=== PATIENT | female | born 1990 | race Caucasian/White ===

== ENCOUNTER → 2018-06-14 | Outpatient (CLI) | payer BC ==
[2018-06-14 11:13] LABS: HCT 38.7 % (34.0-46.0); HGB 12.6 gm/dL (11.4-16.0); MCH 29.4 pg (25.0-35.0); MCHC 32.5 g/dL (31.0-37.0); MCV 90.5 fL (80.0-100.0); Mean Platelet Volume 7.1; Platelet Count 276 k/uL (150-450); RBC 4.27 m/uL (3.80-5.40); RDW 13.1 % (11.5-15.5); WBC 11.2 k/uL (3.8-10.6)
== END | disposition home or self-care (01) ==
LOC: LABWHC1 09:13
PROVIDERS: ATTEND Obstetrics & Gynecology
DX: Z34.02 Encounter for supervision of normal first pregnancy, second trimester (principal)
CPT/HCPCS: 36415; 82950; 84439; 84443; 85027

== ENCOUNTER 2018-09-06 05:55 | Inpatient (IN) | payer BC ==
[2018-09-06] MEDS ORDERED: METHYLERGONOVINE 0.2 MG/ML 1 ML AMP IM PRN (06:14)
[2018-09-06] MEDS ORDERED: LIDOCAINE 0.5% (PF) 5 MG/ML (50 ML SDV) SQ PRN (06:14)
[2018-09-06] MEDS ORDERED: CARBOPROST TROMETHAMINE 250 MCG/ML 1 ML AMP IM PRN (06:14)
[2018-09-06] MEDS ORDERED: TERBUTALINE 1 MG/ML VIAL SQ PRN (06:14)
[2018-09-06] MEDS ORDERED: OXYTOCIN 10 UNIT/ML 1 ML VIAL IM PRN (06:14)
[2018-09-06] MEDS ORDERED: AMPICILLIN 2,000 MG in SODIUM CHLORIDE 0.9% 100 ML IVPB STA (06:14)
[2018-09-06] MEDS ORDERED: OXYTOCIN 30 UNITS/500 ML NS 30 UNIT in SALINE 1 500ML.BAG IV SCH (06:15)
[2018-09-06 06:32] VITALS: BMI 48.3
[2018-09-06] MEDS: LACTATED RINGERS 1,000 ML IV SCH ×3 (06:33→21:49)
[2018-09-06 06:43] LABS: Basophils % (A) 0 %; Eosinophils # (A) 0.2 k/uL (0-0.7); Eosinophils % (A) 2 %; HCT 41.5 % (34.0-46.0); HGB 13.6 gm/dL (11.4-16.0); Lymphocytes # (A) 2.2 k/uL (1.0-4.8); Lymphocytes % (A) 19 %; MCH 28.4 pg (25.0-35.0); MCHC 32.8 g/dL (31.0-37.0); MCV 86.6 fL (80.0-100.0); Mean Platelet Volume 7.7; Monocytes # (A) 0.5 k/uL (0-1.0); Monocytes % (A) 4 %; Neutrophils # (A) 8.7 k/uL (1.3-7.7); Neutrophils % (A) 73 %; Platelet Count 254 k/uL (150-450); RBC 4.79 m/uL (3.80-5.40); RDW 13.4 % (11.5-15.5); WBC 11.8 k/uL (3.8-10.6)
[2018-09-06] MEDS: AMPICILLIN 1,000 MG in SODIUM CHLORIDE 0.9% 50 ML IVPB SCH ×4 (10:38→22:16)
[2018-09-06] MEDS ORDERED: BUTORPHANOL 1 MG/ML 1 ML VIAL IV PRN (12:28)
[2018-09-06] MEDS ORDERED: CITRIC ACID-SODIUM CITRATE 15 ML CUP PO ONE (22:42)
[2018-09-06] MEDS ORDERED: DEXAMETHASONE SOD PHOS (MDV) 100 MG/10 ML VIAL ONE (23:06)
[2018-09-06] MEDS ORDERED: KETOROLAC 30 MG/ML 1 ML VIAL ONE (23:06)
[2018-09-06] MEDS ORDERED: OXYTOCIN 10 UNIT/ML 1 ML VIAL ONE (23:06)
[2018-09-06] MEDS ORDERED: fentaNYL (PF) 50 MCG/ML 2 ML AMP ONE (23:06)
[2018-09-06] MEDS ORDERED: MORPHINE SULFATE (PF) 0.3 MG/0.3 ML SYR ONE (23:06)
[2018-09-06] MEDS ORDERED: ONDANSETRON 4 MG/2 ML VIAL ONE (23:06)
[2018-09-06] MEDS ORDERED: NALBUPHINE 10 MG/ML (1 ML AMP) ONE (23:06)
[2018-09-06] MEDS ORDERED: LACTATED RINGERS 1,000 ML IV SCH (23:45)
[2018-09-06] MEDS ORDERED: OXYTOCIN 20 UNITS/1000 ML NS 1,000 ML IV SCH (23:45)
--- NOTE | 2018-09-06 23:52 | P.HPOB ---
History of Present Illness H&P Date: 09/06/18 Chief Complaint: Induction of labor, pre-eclampsia 28 year old presents at 37 weeks 1 day for induction of labor due to pre- eclampsia. She has had elevated BPs in office and triage up to 150/100. She has had normal labs except a P/C ratio of 0.4. heart tones are 130's moderate variability and accelerations, category 1. HEr cervix is 1/70/-3. She is not charly. Review of Systems All systems: negative Constitutional: Denies chills, Denies fever Eyes: denies blurred vision, denies pain, denies tunnel vision/blind spots Ears, nose, mouth and throat: Denies headache, Denies sore throat Cardiovascular: Denies chest pain, Denies shortness of breath Respiratory: Denies cough Gastrointestinal: Denies abdominal pain, Denies diarrhea, Denies nausea, Denies vomiting Genitourinary: Denies dysuria, Denies hematuria Musculoskeletal: Denies myalgias Integumentary: Denies pruritus, Denies rash Neurological: Denies numbness, Denies weakness Psychiatric: Denies anxiety, Denies depression Endocrine: Denies fatigue, Denies weight change Past Medical History Past Medical History: Thyroid Disorder Additional Past Medical History / Comment(s): OB history: This is an IVF and 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 A+, abs neg, Rub Imm, RPR NR, Hep B Neg, GBS+. OVer the last few weeks her BPs have started to rise and her labs have been done weekly for the last 3 weeks. Labs were normal except a P/C ratio of 0.4. This is diagnostic of pre-eclampsia though she denies any symptoms. She was followed with twice weekly NSTs, weekly BPPs and weekly labs. History of Any Multi-Drug Resistant Organisms: None Reported Past Anesthesia/Blood Transfusion Reactions: No Reported Reaction Past Psychological History: No Psychological Hx Reported Smoking Status: Never smoker Past Alcohol Use History: None Reported Past Drug Use History: None Reported - Past Family History Father Family Medical History: Cancer Medications and Allergies Home Medications Medication Instructions Recorded Confirmed Type Cetirizine HCl [Zyrtec] 1 tab PO DAILY 08/15/18 09/06/18 History Cholecalciferol [Vitamin D3] 1 tab PO DAILY 08/15/18 08/15/18 History Levothyroxine Sodium [Synthroid] 1 tab PO DAILY 08/15/18 09/06/18 History Montelukast [Singulair] 10 mg PO DAILY 08/15/18 09/06/18 History [place]-3 Fatty Acids [[place]-3] 1 tab PO DAILY 08/15/18 09/06/18 History Pnv,Calcium 72/Iron/Folic Acid 1 each PO DAILY 08/15/18 09/06/18 History [ Plus Tablet] diphenhydrAMINE HCL [Benadryl] 25 mg PO HS 09/06/18 09/06/18 History Allergies Allergy/AdvReac Type Severity Reaction Status Date / Time Sulfa (Sulfonamide Allergy Rash/Hives Verified 09/06/18 06:11 Antibiotics) Exam Osteopathic Statement: *. No significant issues noted on an osteopathic structural exam other than those noted in the History and Physical/Consult. Vital Signs Temp Pulse Resp BP Pulse Ox 09/06/18 06:10 98.4 F 93 16 182/84 96 Intake and Output 09/06/18 09/06/18 09/07/18 14:59 22:59 06:59 Intake Total 1000 Balance 1000 Intake: IV 1000 Lactated Ringers 1,000 ml 1000 @ 125 mls/hr IV .Q8H RAMON Rx#:[id number] Other: # Voids 2 Heart: Regular rate and rhythm Lungs: Clear to auscultation bilaterally Abdomen: Soft, nontender Extremities: Negative Homans sign Results Result Diagrams: 09/06/18 06:18 Abnormal Lab Results - Last 24 Hours (Table) 09/06/18 Range/Units 06:18 WBC 11.8 H (3.8-10.6) k/uL Neutrophils # 8.7 H (1.3-7.7) k/uL Assessment and Plan (1) Pre-eclampsia Current Visit: Yes Status: Acute Code(s): O14.90 - UNSPECIFIED PRE- ECLAMPSIA, UNSPECIFIED TRIMESTER SNOMED Code(s): 756558041 (2) 37 weeks gestation of Current Visit: Yes Status: Acute Code(s): Z3A.37 - 37 WEEKS GESTATION OF SNOMED Code(s): 55499117 (3) Bicornuate uterus Current Visit: Yes Status: Acute Code(s): Q51.3 - BICORNATE UTERUS SNOMED Code(s): 83380722 Plan: 1. Induction of labor with amniotomy and Pitocin 2. Anticipate normal vaginal delivery
[2018-09-06] MEDS ORDERED: ACETAMINOPHEN TAB 325 MG TAB PO PRN (23:57)
[2018-09-06] MEDS ORDERED: LANOLIN CREAM 5 GM TUBE TOPICAL PRN (23:57)
[2018-09-06] MEDS ORDERED: diphenhydrAMINE 50 MG CAP PO PRN (23:57)
[2018-09-06] MEDS ORDERED: METOCLOPRAMIDE 5 MG/ML 2 ML VIAL IVP PRN (23:57)
[2018-09-06] MEDS ORDERED: ZOLPIDEM 5 MG TAB PO PRN (23:57)
[2018-09-06] MEDS ORDERED: ONDANSETRON 4 MG/2 ML VIAL IVP PRN (23:57)
[2018-09-06] MEDS ORDERED: diphenhydrAMINE 25 MG CAP PO PRN (23:57)
[2018-09-06] MEDS ORDERED: KETOROLAC 30 MG/ML 1 ML VIAL IVP PRN (23:57)
[2018-09-06] MEDS ORDERED: diphenhydrAMINE 50 MG/ML 1 ML VIAL IVP PRN ×2 (23:57)
[2018-09-06] MEDS ORDERED: NALOXONE 0.4 MG/ML 1 ML VIAL IV PRN (23:57)
--- NOTE | 2018-09-06 23:57 | P.OP ---
Date of Procedure: 09/06/18 Preoperative Diagnosis: 1. at 37 weeks and 1 day 2. Preeclampsia 3. Bicornuate uterus 4. Failure to progress Postoperative Diagnosis: 1. at 37 weeks and 1 day 2. Preeclampsia 3. Bicornuate uterus 4. Failure to progress Procedure(s) Performed: Primary low transverse Anesthesia: spinal Surgeon: Ramandeep Shell Body Welder #1: Faith Perdue Estimated Blood Loss (ml): 350 IV fluids (ml): 600 Urine output (ml): 200 Pathology: other (Placenta) Condition: stable Disposition: floor Indications for Procedure: 28-year-old presented at 37 weeks and 1 day for induction of labor due to preeclampsia. Please see history and physical for full details on this diagnosis. Her cervix was 1 cm dilated, 70% effaced, and -3 station. She is not charly. heart tones 130 with moderate variability and accelerations, category 1 tracing. Amniotomy was performed at 8:20 AM and clear fluid noted. Pitocin had been started. She was also receiving ampicillin for GBS positive status. When she was charly in a good labor pattern her cervix did dilate to 3 cm, 90% effaced, and -2 station. She did not pass this dilation despite adequate contractions for several hours. heart tones remained category 1 tracing. Informed consent was obtained and section was called. Operative Findings: Viable female, Apgars 9, 9, weight 6 lbs. 13 oz. Normal uterus, tubes, ovaries. Description of Procedure: Patient was taken to the operating room where spinal anesthesia was found be adequate. She was prepped and draped in normal sterile fashion in dorsal supine position with a leftward tilt. Pfannenstiel skin incision was made the scalpel and carried through to the underlying layer of fascia with the scalpel. Fascia was incised in midline and carried bilaterally with the Gleason scissors. The superior aspect of the fascial incision was grasped with [place] clamps elevated and the underlying rectus muscles dissected off with the Gleason's. Attention was then turned to inferior aspect of same incision which in a similar fashion was grasped tented up and the underlying rectus muscles dissected off with the Bella banks's. The rectus muscles were the midline and the peritoneum was identified tented up and entered sharply with the scalpel. The incision was extended superiorly and inferiorly with good visualization of the bladder. The bladder blade was inserted and the vesicouterine peritoneum was incised the [place]zen[place]ums then carried bilaterally and bladder flap created digitally. A low transverse incision was then made on the uterus with the scalpel. This was carried bilaterally and digital manner. 's head delivered atraumatically, nose and mouth bulb suctioned, cord clamped and cut, handed off to waiting nurses. Apgars 9,9, weight 6 lbs. 13 oz. Placenta delivered manually, intact with three-vessel cord. The uterus is exteriorized and cleared of all clots and debris. The uterine incision was closed with 0 Vicryl in a running locked fashion. Second layer of the same sutures used in imbricating fashion to obtain excellent hemostasis. Both ovaries and tubes appeared normal. The uterus was placed back into the abdomen. The peritoneum was reapproximated using 2-0 Vicryl in a running fashion. The muscles were reapproximated using 2- 0 Vicryl in interrupted fashion. The fascia was reapproximated using 0 Vicryl in a running fashion. The subcutaneous tissues closed with 3-0 Vicryl running fashion. The skin was closed major. Patient tolerated the procedure well, sponge and instrument counts were correct times 2 and she was taken to the recovery room in stable condition.
[2018-09-07 05:52] LABS: Basophils % (A) 0 %; Eosinophils # (A) 0.2 k/uL (0-0.7); Eosinophils % (A) 1 %; HCT 39.2 % (34.0-46.0); HGB 12.8 gm/dL (11.4-16.0); Lymphocytes # (A) 0.9 k/uL (1.0-4.8); Lymphocytes % (A) 5 %; MCH 28.2 pg (25.0-35.0); MCHC 32.6 g/dL (31.0-37.0); MCV 86.5 fL (80.0-100.0); Mean Platelet Volume 7.9; Monocytes # (A) 0.3 k/uL (0-1.0); Monocytes % (A) 2 %; Neutrophils % (A) 92 %; Platelet Count 242 k/uL (150-450); RBC 4.53 m/uL (3.80-5.40); RDW 13.3 % (11.5-15.5); WBC 17.4 k/uL (3.8-10.6)
[2018-09-07] MEDS: SENNOSIDES-DOCUSATE SODIUM 1 EACH TAB PO SCH ×2 (09:55→20:00)
--- NOTE | 2018-09-07 12:54 | P.PNOBGPC ---
Subjective - Subjective Principal diagnosis: S/P 1*LTCS POD #1 Interval history: Patient seen and examined. She is seen actively vomiting at bedside. She felt much better once she did. She is been up to the bedside once, it has only been about 12 hours since delivery. Her pain is controlled Patient reports: Reports pain well controlled, Reports ambulating normally, Reports nauseated [place]: doing well Objective - Vital Signs Latest vital signs: Vital Signs Temp Pulse Resp BP Pulse Ox 09/07/18 08:00 98.5 F 76 18 114/62 95 09/07/18 03:55 98.0 F 77 16 131/74 98 09/07/18 01:50 98.3 F 77 16 146/65 09/07/18 01:20 98.4 F 74 16 123/62 96 09/07/18 00:50 80 16 110/63 94 L 09/07/18 00:35 77 16 120/68 95 09/07/18 00:20 97.8 F 85 16 117/64 94 L 09/07/18 00:05 97.5 F L 84 16 101/66 95 09/06/18 23:50 97.4 F L 81 16 124/65 94 L Intake and Output 09/06/18 09/07/18 09/07/18 22:59 06:59 14:59 Intake Total 10 Output Total 100 600 Balance -90 -600 Intake: Oral 10 Output: Urine 100 400 Uretheral ([place]) 400 Emesis 200 Other: # Voids 2 - Exam Lungs: bilateral: normal Chest: Normal S1, Normal S2 Extremities: Present: normal Abdomen: Present: normal appearance, soft. Absent: distention, tenderness Incision: Present: normal, dry, intact Uterus: Present: normal, firm - Labs Labs: Abnormal Lab Results - Last 24 Hours (Table) 09/07/18 Range/Units 05:35 WBC 17.4 H (3.8-10.6) k/uL Neutrophils # 16.0 H (1.3-7.7) k/uL Lymphocytes # 0.9 L (1.0-4.8) k/uL Assessment and Plan (1) Pre-eclampsia Current Visit: Yes Status: Acute Code(s): O14.90 - UNSPECIFIED PRE- ECLAMPSIA, UNSPECIFIED TRIMESTER SNOMED Code(s): 218870065 (2) 37 weeks gestation of Current Visit: Yes Status: Resolved Code(s): Z3A.37 - 37 WEEKS GESTATION OF SNOMED Code(s): 43671551 (3) Bicornuate uterus Current Visit: Yes Status: Acute Code(s): Q51.3 - BICORNATE UTERUS SNOMED Code(s): 79078128 (4) Status post primary low transverse section Current Visit: Yes Status: Acute Code(s): Z98.891 - HISTORY OF UTERINE SCAR FROM PREVIOUS SURGERY SNOMED Code(s): 871545517 Plan: 1. Diet as tolerated 2. Increase ambulation
[2018-09-07] MEDS: HYDROcodone/APAP 7.5-325MG 1 EACH TAB PO PRN (19:45)
[2018-09-07] MEDS: SIMETHICONE 80 MG CHEWABLE PO PRN (20:00)
[2018-09-07] MEDS: IBUPROFEN 600 MG TAB PO PRN (23:27)
[2018-09-08] MEDS: HYDROcodone/APAP 7.5-325MG 1 EACH TAB PO PRN ×2 (05:14→15:12)
[2018-09-08 08:52] VITALS: BP 126/72; PULSE 98; RESP 18; TEMP 98.6
--- NOTE | 2018-09-08 09:50 | P.DS ---
Providers Date of admission: 09/06/18 05:55 Expected date of discharge: 09/08/18 Attending physician: Ramandeep Shell Primary care physician: Stated None - Discharge Diagnosis(es) (1) Pre-eclampsia Current Visit: Yes Status: Acute (2) 37 weeks gestation of Current Visit: Yes Status: Resolved (3) Bicornuate uterus Current Visit: Yes Status: Acute (4) Status post primary low transverse section Current Visit: Yes Status: Acute Hospital Course: Pt presented for induction of labor due to pre-eclampsia. She underwent a primary low transverse for failure to progress. Her post op course was uncomplicated. She will be discharged home PPD #2 in stable condition to follow up with me in 1 week. Plan - Discharge Summary New Discharge Prescriptions: New Ibuprofen [Motrin] 600 mg PO Q6HR PRN #30 tab PRN Reason: Mild Pain Or Fever >= 100.5 HYDROcodone/APAP 7.5-325MG [[place] 7.5-325] 1 each PO Q4H PRN #18 tab PRN Reason: Severe Pain No Action Levothyroxine Sodium [Synthroid] 1 tab PO DAILY Cetirizine HCl [Zyrtec] 1 tab PO DAILY Pnv,Calcium 72/Iron/Folic Acid [ Plus Tablet] 1 each PO DAILY Montelukast [Singulair] 10 mg PO DAILY Cholecalciferol [Vitamin D3] 1 tab PO DAILY [place]-3 Fatty Acids [[place]-3] 1 tab PO DAILY diphenhydrAMINE HCL [Benadryl] 25 mg PO HS Discharge Medication List Cetirizine HCl [Zyrtec] 1 tab PO DAILY 08/15/18 [History] Cholecalciferol [Vitamin D3] 1 tab PO DAILY 08/15/18 [History] Levothyroxine Sodium [Synthroid] 1 tab PO DAILY 08/15/18 [History] Montelukast [Singulair] 10 mg PO DAILY 08/15/18 [History] [place]-3 Fatty Acids [[place]-3] 1 tab PO DAILY 08/15/18 [History] Pnv,Calcium 72/Iron/Folic Acid [ Plus Tablet] 1 each PO DAILY 08/15/18 [History] diphenhydrAMINE HCL [Benadryl] 25 mg PO HS 09/06/18 [History] HYDROcodone/APAP 7.5-325MG [[place] 7.5-325] 1 each PO Q4H PRN #18 tab 09/08/18 [Rx] Ibuprofen [Motrin] 600 mg PO Q6HR PRN #30 tab 09/08/18 [Rx] Follow up Appointment(s)/Referral(s): Ramandeep Shell DO [Doctor of Osteopathic Medicine] - 1 Week Discharge Disposition: HOME SELF-CARE
[2018-09-08] MEDS: IBUPROFEN 600 MG TAB PO PRN (10:08)
[2018-09-08] MEDS: SENNOSIDES-DOCUSATE SODIUM 1 EACH TAB PO SCH (10:08)
[2018-09-08] MEDS: SIMETHICONE 80 MG CHEWABLE PO PRN (11:20)
--- NOTE | 2018-09-08 20:42 | P.PN ---
Progress Note - Text 09/07 1809 28-year-old female status post by Dr. Shell. Patient had a Duramorph spinal with a VAS of 0, no complains of nausea. Patient had complains of pruritus but she is feeling better
== END 2018-09-08 17:00 | disposition home or self-care (01) | DRG 788 ==
LOC: 4FBP 05:55
PROVIDERS: ADMIT Obstetrics & Gynecology; ATTEND Obstetrics & Gynecology
PROC: 3E033VJ Introduction of Other Hormone into Peripheral Vein, Percutaneous Approach (ICD-10-PCS; 2018-09-06)
PROC: 10907ZC Drainage of Amniotic Fluid, Therapeutic from Products of Conception, Via Natural or Artificial Opening (ICD-10-PCS; 2018-09-06)
PROC: 10D00Z1 Extraction of Products of Conception, Low, Open Approach (ICD-10-PCS; principal; 2018-09-06 23:20)
DX: O14.94 Unspecified pre-eclampsia, complicating childbirth (principal); O62.2 Other uterine inertia; O34.03 Maternal care for unspecified congenital malformation of uterus, third trimester; Q51.3 Bicornate uterus; O99.824 Streptococcus B carrier state complicating childbirth; O99.283 Endocrine, nutritional and metabolic diseases complicating pregnancy, third trimester; E07.9 Disorder of thyroid, unspecified; O99.62 Diseases of the digestive system complicating childbirth; K21.9 Gastro-esophageal reflux disease without esophagitis; Z3A.37 37 weeks gestation of pregnancy; Z37.0 Single live birth; L29.9 Pruritus, unspecified; Z79.890 Hormone replacement therapy; Z79.899 Other long term (current) drug therapy; Z88.2 Allergy status to sulfonamides; Z80.9 Family history of malignant neoplasm, unspecified
CPT/HCPCS: 85025; 86850; 86900; 86901; 88307

== ENCOUNTER 2020-10-20 15:45 | Outpatient (CLI) | payer BC ==
[2020-10-20 16:37] LABS: Appearance,Urine Cloudy (Clear); Bilirubin,Urine Negative (Negative); Blood,Urine Negative (Negative); Color,Urine Yellow; Glucose,Urine (UA) Negative (Negative); Ketones,Urine Trace (Negative); Leukocyte Esterase,Urine Trace (Negative); Mucus,Urine Rare /hpf; Nitrite,Urine Negative (Negative); PH, Urine 5.5 (5.0-8.0); Protein,Urine Trace (Negative); RBC,Urine 4 /hpf (0-5); Specific Gravity,Urine 1.031 (1.001-1.035); Squamous Epithelial Cell,Urine 2 /hpf (0-4); Urobilinogen,Urine <2.0 mg/dL (<2.0); WBC,Urine 6 /hpf (0-5)
[2020-10-20 16:55] VITALS: BP 119/81; PULSE 97; RESP 18; TEMP 97.3
[2020-10-20 16:58] LABS: Creatinine,Urine Random 182.2 mg/dL; Protein/Creatinine Ratio,Urine 0.22
[2020-10-20 17:13] LABS: Basophils % (A) 0 %; Eosinophils # (A) 0.3 k/uL (0-0.7); Eosinophils % (A) 3 %; HCT 35.6 % (34.0-46.0); HGB 11.9 gm/dL (11.4-16.0); Lymphocytes # (A) 1.8 k/uL (1.0-4.8); Lymphocytes % (A) 15 %; MCH 28.9 pg (25.0-35.0); MCHC 33.4 g/dL (31.0-37.0); MCV 86.4 fL (80.0-100.0); Mean Platelet Volume 6.9; Monocytes # (A) 0.3 k/uL (0-1.0); Monocytes % (A) 3 %; Neutrophils # (A) 9.7 k/uL (1.3-7.7); Neutrophils % (A) 79 %; Platelet Count 271 k/uL (150-450); RBC 4.12 m/uL (3.80-5.40); RDW 13.4 % (11.5-15.5); WBC 12.3 k/uL (3.8-10.6)
--- NOTE | 2020-10-20 17:14 | US ---
EXAMINATION TYPE: US OB BPP wo non-stress DATE OF EXAM: 10/20/2020 COMPARISON: NONE CLINICAL HISTORY: preeclampsia. pt in triage 2. HTN EXAM PERFORMED: Transabdominal (TA) BPP PARAMETERS: PRESENTATION: Vertex HEART RATE: 134 bpm RHYTHM: Normal SHARMILA: 10.8 cm DIAPHRAGM IMAGED: Yes BPP SCORIN. Breathin (1 episode of breathing of 30 second duration in 30 minutes of scanning time) 2. Movement: 2 (at least 3 discrete body movements in 30 minutes) 3. Tone: 2 (1 episode of active flexion/extension of limb) 4. SHARMILA: 2 (SHARMILA index > 5cm) TOTAL SCORE: 6 / 8 Results given to L&D at time of exam
[2020-10-20 17:26] LABS: ALT 11 U/L (4-34); AST 11 U/L (14-36); African American GFR (CKD) >90 (>60 ml/min/1.73 sqM); Blood Urea Nitrogen 6 mg/dL (7-17); LDH 269 U/L (313-618); Non-African American GFR(CKD) >90 (>60 ml/min/1.73 sqM)
== END 2020-10-20 17:45 | disposition home or self-care (01) ==
LOC: FBPOP 15:45
PROVIDERS: ATTEND Obstetrics & Gynecology
DX: O13.2 Gestational [pregnancy-induced] hypertension without significant proteinuria, second trimester (principal); Z3A.25 25 weeks gestation of pregnancy; Z88.2 Allergy status to sulfonamides
CPT/HCPCS: 76819; 81001; 82565; 82570; 83615; 84156; 84450; 84460; 84520; 84550; 85025

== ENCOUNTER 2020-11-29 18:39 | Outpatient (CLI) | payer BC ==
[2020-11-29 19:57] VITALS: BP 115/54; PULSE 92; RESP 18; TEMP 97.9
--- NOTE | 2020-11-29 22:09 | US ---
EXAMINATION TYPE: US OB BPP wo non-stress DATE OF EXAM: 11/29/2020 COMPARISON: US CLINICAL HISTORY: gest HTN. Gestational HTN. Hx 1 . . EXAM PERFORMED: Transabdominal (TA) BPP PARAMETERS: PRESENTATION: Breech LIE: Longitudinal?? HEART RATE: 161 bpm RHYTHM: Normal SHARMILA: 10.77 cm. DIAPHRAGM IMAGED: Yes, but limited visibility of diaphragm. BPP SCORIN. Breathin (1 episode of breathing of 30 second duration in 30 minutes of scanning time) 2. Movement: 2 (at least 3 discrete body movements in 30 minutes) 3. Tone: 2 (1 episode of active flexion/extension of limb) 4. SHARMILA: 2 (SHARMILA index > 5cm) TOTAL SCORE: 8 / 8 Impression Biophysical profile score is 8 out of 8. No complicating process seen.
--- NOTE | 2020-11-30 06:39 | P.MSEPDOC ---
Presenting Problems - Arrival Data Date of Arrival on Unit: 11/29/20 Time of Arrival on Unit: 18:39 Mode of Transport: Ambulatory - Complaint OB-Reason for Admission/Chief Complaint: NST, Other Comment: BPP Medical History - Information : 2 Para: 1 Term: 1 : 0 Abortions: Spontaneous or Elective: 0 Number of Living Children: 1 - Gestational Age Gestational Age by SO (wks/days): 31 Weeks and 2 Days - History Complications: Other Comment: Gestational HTN Review of Systems - Review of Systems Constitutional: No problems Breast: No problems ENT: No problems Cardiovascular: No problems Respiratory: No problems Gastrointestinal: No problems Genitourinary: No problems Musculoskeletal: No problems Neurological: No problems Skin: No problems Vital Signs - Temperature Temperature: 97.9 F Temperature Source: Temporal Artery Scan - Pulse Right Pulse Oximetery Pulse Rate: 92 Pulse Assessment Method: Pulse Oximetry - Respirations Respiratory Rate: 18 Oxygen Delivery Method: Room Air - Blood Pressure Right Arm Blood Pressure: 115/54 Blood Pressure Mean: 74 Blood Pressure Source: Automatic Cuff Medical Screen Scoring - Assessment - Baby A Baseline FHR: 135 Heart Rate - NICHD Category: Category I (Normal) NST: Reactive Physician Notification - Physician Notified Physician Notified Date: 11/29/20 Physician Notified Time: 19:35 Physician: Frederic Lee New Order Received: Yes - Notification Comment Comment: RN called and spoke with Dr. Lee. Reported on reactive NST and 8/8 BPP. Pt. may DC home and follow up with her previously scheduled MFM apt next week. Maternal Triage Index - Maternal Triage Index Presenting for scheduled procedure w/no complaint: Yes - Scheduled/Requesting Priority 5 Scheduled/Requesting Priority 5: Yes Criteria Met for Priority 5: Weekly NST and BPP order from Dr. Shell Disposition - Disposition OB Disposition: Discharge to home Discharge Date: 11/29/20 Discharge Time: 19:40 I agree with the RN Medical Screening Exam: Yes Case reviewed; plan agreed upon as documented in EMR&OBIX.: Yes Diagnosis: GESTATIONAL HTN W/O SIGNIFICANT PROTEINURIA, THIRD TRIMESTER (Pt sent to L&D per Dr. Shell for NST and BPP. All testing was normal. To f/u Dr. Shell as instructed.)
== END 2020-11-29 19:40 | disposition home or self-care (01) ==
LOC: FBPOP 18:39
PROVIDERS: ATTEND Obstetrics & Gynecology
DX: O13.3 Gestational [pregnancy-induced] hypertension without significant proteinuria, third trimester (principal); Z3A.31 31 weeks gestation of pregnancy; Z88.2 Allergy status to sulfonamides
CPT/HCPCS: 59025; 76819

== ENCOUNTER 2020-12-14 11:45 | Outpatient (CLI) | payer BC ==
[2020-12-14 12:53] LABS: Amorphous Sediment,Urine Occasional /hpf; Appearance,Urine Cloudy (Clear); Bilirubin,Urine Negative (Negative); Blood,Urine Negative (Negative); Color,Urine Yellow; Glucose,Urine (UA) Negative (Negative); Ketones,Urine Negative (Negative); Leukocyte Esterase,Urine Negative (Negative); Mucus,Urine Rare /hpf; Nitrite,Urine Negative (Negative); PH, Urine 7.5 (5.0-8.0); Protein,Urine Trace (Negative); Specific Gravity,Urine 1.019 (1.001-1.035); Squamous Epithelial Cell,Urine 2 /hpf (0-4); Urobilinogen,Urine <2.0 mg/dL (<2.0); WBC,Urine 1 /hpf (0-5)
[2020-12-14 13:08] LABS: Creatinine,Urine Random 119.2 mg/dL; Protein/Creatinine Ratio,Urine 0.076
[2020-12-14 13:18] LABS: Basophils % (A) 0 %; Eosinophils # (A) 0.2 k/uL (0-0.7); Eosinophils % (A) 2 %; HCT 36.3 % (34.0-46.0); HGB 12.1 gm/dL (11.4-16.0); Lymphocytes # (A) 1.4 k/uL (1.0-4.8); Lymphocytes % (A) 13 %; MCH 29.6 pg (25.0-35.0); MCHC 33.5 g/dL (31.0-37.0); MCV 88.5 fL (80.0-100.0); Mean Platelet Volume 7.4; Monocytes # (A) 0.4 k/uL (0-1.0); Monocytes % (A) 3 %; Neutrophils # (A) 8.8 k/uL (1.3-7.7); Neutrophils % (A) 81 %; Platelet Count 221 k/uL (150-450); RDW 13.4 % (11.5-15.5); WBC 10.9 k/uL (3.8-10.6)
[2020-12-14 13:26] LABS: ALT 14 U/L (4-34); AST 13 U/L (14-36); African American GFR (CKD) >90 (>60 ml/min/1.73 sqM); Blood Urea Nitrogen 4 mg/dL (7-17); LDH 390 U/L (313-618); Non-African American GFR(CKD) >90 (>60 ml/min/1.73 sqM); Uric Acid 4.3 mg/dL (3.7-7.4)
[2020-12-14 13:46] VITALS: BP 131/64; PULSE 100; RESP 16; TEMP 97.8
--- NOTE | 2020-12-15 13:07 | P.MSEPDOC ---
Presenting Problems - Arrival Data Date of Arrival on Unit: 12/14/20 Time of Arrival on Unit: 11:45 Mode of Transport: Ambulatory - Complaint OB-Reason for Admission/Chief Complaint: NST, PIH Comment: Pt sent to triage c\orders for NST, PIH work up and COVID screen. Appt today c\Dr. Shell and for NST, unable to go to office r/t cough and chest congestion. Medical History - Information : 2 Para: 1 Term: 1 : 0 Abortions: Spontaneous or Elective: 0 Number of Living Children: 1 - Gestational Age Gestational Age by SO (wks/days): 33 Weeks and 3 Days - History Complications: Prior Review of Systems - Review of Systems Constitutional: No problems Breast: No problems ENT: Cough Cardiovascular: No problems Respiratory: No problems Gastrointestinal: No problems Genitourinary: No problems Musculoskeletal: No problems Neurological: No problems Skin: No problems Vital Signs - Temperature Temperature: 97.8 F Temperature Source: Oral - Pulse Right Sitting Brachial Pulse Rate: 100 Pulse Assessment Method: Automatic Cuff - Respirations Respiratory Rate: 16 Oxygen Delivery Method: Room Air O2 Sat by Pulse Oximetry: 96 - Blood Pressure Right Arm Sitting Blood Pressure: 131/64 Blood Pressure Mean: 86 Blood Pressure Source: Automatic Cuff Physician Notification - Physician Notified Physician Notified Date: 12/14/20 Physician Notified Time: 13:30 Physician: Ramandeep Shell New Order Received: Yes - Notification Comment Comment: Spk c\Dr. Shell, advsd of pts prescence r/t COVID symptoms. Reviewed PIH labs, COVID swab (neg) and pts BP. States to d/c home, to follow up as scheduled c\[place] and to call and reschedule missed appt today. Maternal Triage Index - Maternal Triage Index Presenting for scheduled procedure w/no complaint: Yes - Scheduled/Requesting Priority 5 Scheduled/Requesting Priority 5: Yes Criteria Met for Priority 5: NST, weekly PIH labs and COVID screen Disposition - Disposition OB Disposition: Discharge to home, Written follow up instructions reviewed Discharge Date: 12/14/20 Discharge Time: 13:40 I agree with the RN Medical Screening Exam: Yes Case reviewed; plan agreed upon as documented in EMR&OBIX.: Yes Diagnosis: GESTATIONAL HTN W/O SIGNIFICANT PROTEINURIA, THIRD TRIMESTER
== END 2020-12-14 13:45 | disposition home or self-care (01) ==
LOC: FBPOP 11:45
PROVIDERS: ATTEND Obstetrics & Gynecology
DX: O13.3 Gestational [pregnancy-induced] hypertension without significant proteinuria, third trimester (principal); Z3A.33 33 weeks gestation of pregnancy; Z88.2 Allergy status to sulfonamides
CPT/HCPCS: 59025; 81001; 82565; 82570; 83615; 84156; 84450; 84460; 84520; 84550; 85025; 87635

== ENCOUNTER 2020-12-28 09:32 | Outpatient (CLI) | payer BC ==
[2020-12-28] MEDS ORDERED: BETAMET ACET-BETAMETH SOD PHOS 6 MG/ML MDV IM SCH (09:45)
[2020-12-28 10:14] LABS: Basophils % (A) 0 %; Eosinophils # (A) 0.2 k/uL (0-0.7); Eosinophils % (A) 2 %; HCT 37.7 % (34.0-46.0); HGB 12.5 gm/dL (11.4-16.0); Lymphocytes # (A) 1.7 k/uL (1.0-4.8); Lymphocytes % (A) 15 %; MCH 28.9 pg (25.0-35.0); MCHC 33.1 g/dL (31.0-37.0); MCV 87.3 fL (80.0-100.0); Mean Platelet Volume 7.7; Monocytes # (A) 0.5 k/uL (0-1.0); Monocytes % (A) 4 %; Neutrophils # (A) 8.7 k/uL (1.3-7.7); Neutrophils % (A) 77 %; Platelet Count 259 k/uL (150-450); RBC 4.32 m/uL (3.80-5.40); RDW 13.4 % (11.5-15.5); WBC 11.2 k/uL (3.8-10.6)
[2020-12-28 10:28] VITALS: BP 132/82; PULSE 82; RESP 16; TEMP 97.1
[2020-12-28 10:34] LABS: ALT 17 U/L (4-34); AST 16 U/L (14-36); African American GFR (CKD) >90 (>60 ml/min/1.73 sqM); Blood Urea Nitrogen 6 mg/dL (7-17); Creatinine,Urine Random 61.7 mg/dL; LDH 423 U/L (313-618); Non-African American GFR(CKD) >90 (>60 ml/min/1.73 sqM); Protein/Creatinine Ratio,Urine 0.243; Uric Acid 5.1 mg/dL (3.7-7.4)
[2020-12-28 10:38] LABS: Appearance,Urine Clear (Clear); Bilirubin,Urine Negative (Negative); Blood,Urine Negative (Negative); Color,Urine Yellow; Glucose,Urine (UA) Negative (Negative); Ketones,Urine Negative (Negative); Leukocyte Esterase,Urine Negative (Negative); Nitrite,Urine Negative (Negative); PH, Urine 6.5 (5.0-8.0); Protein,Urine Negative (Negative); Urobilinogen,Urine <2.0 mg/dL (<2.0)
[2020-12-28 12:32] LABS: INR 0.9 (<1.2); Partial Thromboplastin Time 24.2 sec (22.0-30.0); Prothrombin Time 9.9 sec (9.0-12.0)
--- NOTE | 2020-12-28 12:50 | P.MSEPDOC ---
Presenting Problems - Arrival Data Date of Arrival on Unit: 12/28/20 Time of Arrival on Unit: 09:36 Mode of Transport: Ambulatory - Complaint OB-Reason for Admission/Chief Complaint: PIH Medical History - Information : 2 Para: 1 Term: 1 : 0 Abortions: Spontaneous or Elective: 0 Number of Living Children: 1 - Gestational Age Gestational Age by SO (wks/days): 35 Weeks and 3 Days - History Complications: Prior Review of Systems - Review of Systems Constitutional: No problems Breast: No problems ENT: No problems Cardiovascular: No problems Respiratory: No problems Gastrointestinal: No problems Genitourinary: No problems Musculoskeletal: No problems Neurological: No problems Skin: No problems Vital Signs - Temperature Temperature: 97.1 F Temperature Source: Temporal Artery Scan - Pulse Brachial Pulse Rate: 82 Pulse Assessment Method: Automatic Cuff - Respirations Respiratory Rate: 16 Oxygen Delivery Method: Room Air O2 Sat by Pulse Oximetry: 95 - Blood Pressure Right Arm Sitting Blood Pressure: 132/82 Blood Pressure Mean: 98 Blood Pressure Source: Automatic Cuff Medical Screen Scoring - Assessment - Baby A Heart Rate - NICHD Category: Category I (Normal) Physician Notification - Physician Notified Physician Notified Date: 12/28/20 Physician Notified Time: 11:03 Physician: Ramandeep Shell New Order Received: Yes - Notification Comment Comment: reported PIH labs, bp's and Celestone given. Orders received to dc pt home and pt will f/u with MFM on Sunday. Also, increase Labetolol to 200mg BID per t.o. Dr Shell Maternal Triage Index - Maternal Triage Index Presenting for scheduled procedure w/no complaint: No - Stat/Priority 1 Stat Priority 1: No - Urgent/Priority 2 Urgent Priority 2: No - Prompt/Priority 3 Prompt Priority 3: No - Non-Urgent/Priority 4 Non-Urgent Priority 4: No - Scheduled/Requesting Priority 5 Scheduled/Requesting Priority 5: Yes Criteria Met for Priority 5: PIH work up Disposition - Disposition OB Disposition: Discharge to home, Written follow up instructions reviewed Discharge Date: 12/28/20 Discharge Time: 11:40 I agree with the RN Medical Screening Exam: Yes Case reviewed; plan agreed upon as documented in EMR&OBIX.: Yes Diagnosis: GESTATIONAL HTN W/O SIGNIFICANT PROTEINURIA, THIRD TRIMESTER
== END 2020-12-28 11:38 | disposition home or self-care (01) ==
LOC: FBPOP 09:32
PROVIDERS: ATTEND Obstetrics & Gynecology
DX: O13.3 Gestational [pregnancy-induced] hypertension without significant proteinuria, third trimester (principal); Z3A.35 35 weeks gestation of pregnancy; Z88.2 Allergy status to sulfonamides
CPT/HCPCS: 59025; 99215; 96372; 82570; 84156; 82565; 83615; 84450; 84460; 84520; 84550; 85025; 85610; 85730; 81003; J0702

== ENCOUNTER 2020-12-29 10:58 | Outpatient (CLI) | payer BC ==
[2020-12-29] MEDS ORDERED: BETAMET ACET-BETAMETH SOD PHOS 6 MG/ML MDV IM SCH (11:15)
[2020-12-29 12:18] VITALS: BP 139/78; PULSE 86; RESP 17; TEMP 97.2
--- NOTE | 2021-01-07 13:09 | P.MSEPDOC ---
Presenting Problems - Arrival Data Date of Arrival on Unit: 12/29/20 Time of Arrival on Unit: 10:58 Mode of Transport: Ambulatory - Complaint OB-Reason for Admission/Chief Complaint: Other Comment: pt here for second dose of celestone, reports + fm, denies lof/vb, denies contractions, cont to report headache that she has had since yesterday morning, pt was sent over to triage from appt yesterday to be observed, pt denies blurred vision/epigastric pain Medical History - Information : 2 Para: 1 Term: 1 : 0 Abortions: Spontaneous or Elective: 0 Number of Living Children: 1 - Gestational Age Gestational Age by SO (wks/days): 35 Weeks and 4 Days - History Complications: Prior Comment: elevated bps Review of Systems - Review of Systems Constitutional: No problems Breast: No problems ENT: No problems Cardiovascular: No problems Respiratory: No problems Gastrointestinal: No problems Genitourinary: No problems Musculoskeletal: No problems Neurological: No problems Skin: No problems Vital Signs - Temperature Temperature: 97.2 F Temperature Source: Oral - Pulse Right Brachial Pulse Rate: 86 Pulse Assessment Method: Automatic Cuff - Respirations Respiratory Rate: 17 Oxygen Delivery Method: Room Air - Blood Pressure Right Arm Blood Pressure: 139/78 Blood Pressure Mean: 98 Blood Pressure Source: Automatic Cuff Medical Screen Scoring - Assessment - Baby A Baseline FHR: 145 Heart Rate - NICHD Category: Category I (Normal) NST: Reactive Physician Notification - Physician Notified Physician Notified Date: 12/29/20 Physician Notified Time: 12:00 Physician: Ramandeep Shell Order Received: Yes (dc home) Maternal Triage Index - Scheduled/Requesting Priority 5 Scheduled/Requesting Priority 5: Yes Criteria Met for Priority 5: second dose of celestone Disposition - Disposition OB Disposition: Discharge to home, Written follow up instructions reviewed Discharge Date: 12/29/20 Discharge Time: 12:15 I agree with the RN Medical Screening Exam: Yes Case reviewed; plan agreed upon as documented in EMR&OBIX.: Yes Diagnosis: GESTATIONAL HTN W/O SIGNIFICANT PROTEINURIA, THIRD TRIMESTER
== END 2020-12-29 12:15 | disposition home or self-care (01) ==
LOC: FBPOP 10:58
PROVIDERS: ATTEND Obstetrics & Gynecology
DX: O13.3 Gestational [pregnancy-induced] hypertension without significant proteinuria, third trimester (principal); Z3A.35 35 weeks gestation of pregnancy; Z88.2 Allergy status to sulfonamides
CPT/HCPCS: 59025; 96372; J0702

== ENCOUNTER 2020-12-30 12:44 | Outpatient (CLI) | payer BC ==
[2020-12-30 14:16] VITALS: BP 136/85; PULSE 86; RESP 18; TEMP 96.1
--- NOTE | 2020-12-31 08:52 | P.MSEPDOC ---
Presenting Problems - Arrival Data Date of Arrival on Unit: 12/30/20 Time of Arrival on Unit: 12:45 Mode of Transport: Ambulatory - Complaint OB-Reason for Admission/Chief Complaint: Decreased Movement, Elevated Blood Pressure Medical History - Information : 2 Para: 1 Term: 1 : 0 Abortions: Spontaneous or Elective: 0 Number of Living Children: 1 - Gestational Age Gestational Age by SO (wks/days): 35 Weeks and 5 Days - History Complications: Other Comment: PIH, had blood work 2 days ago, had Celestone inj 2 and 1 days ago. Also has umbilical cord varix Review of Systems - Review of Systems Constitutional: No problems Breast: No problems ENT: No problems Cardiovascular: No problems Respiratory: No problems Gastrointestinal: No problems Genitourinary: No problems Musculoskeletal: No problems Neurological: No problems Skin: No problems Vital Signs - Temperature Temperature: 96.1 F Temperature Source: Temporal Artery Scan - Pulse Right Sitting Brachial Pulse Rate: 86 Pulse Assessment Method: Automatic Cuff - Respirations Respiratory Rate: 18 Oxygen Delivery Method: Room Air O2 Sat by Pulse Oximetry: 97 - Blood Pressure Right Arm Sitting Blood Pressure: 136/85 Blood Pressure Mean: 102 Blood Pressure Source: Automatic Cuff Medical Screen Scoring - Assessment - Baby A Baseline FHR: 135 Heart Rate - NICHD Category: Category I (Normal) NST: Reactive Physician Notification - Physician Notified Physician Notified Date: 12/30/20 Physician Notified Time: 13:38 Physician: Cecile Uriostegui Order Received: Yes Maternal Triage Index - Prompt/Priority 3 Prompt Priority 3: Yes Criteria Met for Priority 3: SBP>140, no new symptoms, blood work done 3 days ago Disposition - Disposition OB Disposition: Discharge to home, Written follow up instructions reviewed Discharge Date: 12/30/20 Discharge Time: 14:00 I agree with the RN Medical Screening Exam: Yes Case reviewed; plan agreed upon as documented in EMR&OBIX.: Yes Diagnosis: GESTATIONAL HTN W/O SIGNIFICANT PROTEINURIA, THIRD TRIMESTER
== END 2020-12-30 14:00 | disposition home or self-care (01) ==
LOC: FBPOP 12:44
PROVIDERS: ATTEND Obstetrics & Gynecology
DX: O13.3 Gestational [pregnancy-induced] hypertension without significant proteinuria, third trimester (principal); Z3A.35 35 weeks gestation of pregnancy; Z88.2 Allergy status to sulfonamides
CPT/HCPCS: 59025; 99215

== ENCOUNTER 2021-01-01 23:44 | Outpatient (CLI) | payer BC ==
[2021-01-02 00:18] LABS: Amorphous Sediment,Urine Rare /hpf; Appearance,Urine Clear (Clear); Bacteria,Urine Occasional /hpf; Bilirubin,Urine Negative (Negative); Blood,Urine Negative (Negative); Color,Urine Yellow; Glucose,Urine (UA) Negative (Negative); Ketones,Urine Trace (Negative); Leukocyte Esterase,Urine Large (Negative); Mucus,Urine Rare /hpf; Nitrite,Urine Negative (Negative); Protein,Urine Negative (Negative); RBC,Urine 1 /hpf (0-5); Specific Gravity,Urine 1.009 (1.001-1.035); Squamous Epithelial Cell,Urine 6 /hpf (0-4); Urobilinogen,Urine <2.0 mg/dL (<2.0); WBC,Urine 41 /hpf (0-5)
[2021-01-02 01:03] VITALS: BP 132/66; PULSE 100; RESP 14; TEMP 96.1
--- NOTE | 2021-01-02 12:48 | P.MSEPDOC ---
Presenting Problems - Arrival Data Date of Arrival on Unit: 01/01/21 Time of Arrival on Unit: 23:44 Mode of Transport: Wheelchair - Complaint OB-Reason for Admission/Chief Complaint: Elevated Blood Pressure Comment: pt states she had two blood pressure readings at home that were over 160 and MFM informed her to be seen if this was to occur. Medical History - Information : 2 Para: 1 Term: 1 Number of Living Children: 1 - Gestational Age Gestational Age by SO (wks/days): 36 Weeks and 1 Days - History Complications: Chronic HTN Comment: history of preeclampsia, gestational hypertension, umbilical varix Review of Systems - Review of Systems Constitutional: No problems Breast: No problems ENT: No problems Cardiovascular: No problems Respiratory: No problems Gastrointestinal: No problems Genitourinary: No problems Musculoskeletal: No problems Neurological: No problems Skin: No problems Vital Signs - Temperature Temperature: 96.1 F Temperature Source: Temporal Artery Scan - Pulse Left Pulse Rate: 100 Pulse Assessment Method: Automatic Cuff - Respirations Respiratory Rate: 14 Oxygen Delivery Method: Room Air O2 Sat by Pulse Oximetry: 96 - Blood Pressure Left Arm Blood Pressure: 132/66 Blood Pressure Mean: 88 Blood Pressure Source: Automatic Cuff Medical Screen Scoring - Assessment - Baby A Baseline FHR: 155 Heart Rate - NICHD Category: Category I (Normal) NST: Reactive Physician Notification - Physician Notified Physician Notified Date: 01/02/21 Physician Notified Time: 00:01 Physician: Dr Hoang New Order Received: Yes - Notification Comment Comment: send u/a, notify if protein is present in the urine. Serial blood pressure readings every 15 minutes for a total of an hour, any pressures over 140 or 90 collect preeclampsia labs. If vitals are stable and no protein in the urine, pt may go home. Maternal Triage Index - Maternal Triage Index Presenting for scheduled procedure w/no complaint: No - Stat/Priority 1 Stat Priority 1: No - Urgent/Priority 2 Urgent Priority 2: No - Prompt/Priority 3 Prompt Priority 3: Yes Criteria Met for Priority 3: pt complaints of elevated bps at home greater than 160's, history of preeclampsia with last , gestational hypertension. Disposition - Disposition OB Disposition: Discharge to home Discharge Date: 01/02/21 Discharge Time: 00:45 I agree with the RN Medical Screening Exam: Yes Case reviewed; plan agreed upon as documented in EMR&OBIX.: Yes Diagnosis: GESTATIONAL HTN W/O SIGNIFICANT PROTEINURIA, THIRD TRIMESTER
== END 2021-01-02 00:45 | disposition home or self-care (01) ==
LOC: FBPOP 23:44
PROVIDERS: ATTEND Obstetrics & Gynecology
DX: O13.3 Gestational [pregnancy-induced] hypertension without significant proteinuria, third trimester (principal); Z3A.36 36 weeks gestation of pregnancy; Z88.2 Allergy status to sulfonamides
CPT/HCPCS: 59025; 81001; 99215

== ENCOUNTER 2021-01-07 09:49 | Inpatient (IN) | payer BC ==
--- NOTE | 2021-01-07 07:19 | P.HPOB ---
History of Present Illness H&P Date: 01/07/21 Chief Complaint: repeat low transverse 30 year old presents at 36 weeks 6 days for repeat low transverse c- section. She has been followed for gestational hypertension for the last several weeks with NSTs, BPPs and bloodwork weekly. She has a history of pre-eclampsia. [facility] advised delivery between 36 and 37 weeks. She did receive celestone about a week ago. Review of Systems All systems: negative Constitutional: Denies chills, Denies fever Eyes: denies blurred vision, denies pain Ears, nose, mouth and throat: Denies headache, Denies sore throat Cardiovascular: Denies chest pain, Denies shortness of breath Respiratory: Denies cough Gastrointestinal: Denies abdominal pain, Denies diarrhea, Denies nausea, Denies vomiting Genitourinary: Denies dysuria, Denies hematuria Musculoskeletal: Denies myalgias Integumentary: Denies pruritus, Denies rash Neurological: Denies numbness, Denies weakness Psychiatric: Denies anxiety, Denies depression Endocrine: Denies fatigue, Denies weight change Past Medical History Past Medical History: Hypertension, Thyroid Disorder Additional Past Medical History / Comment(s): Gestational hypertension, Varicose veins. History of Any Multi-Drug Resistant Organisms: None Reported Past Surgical History: Section Additional Past Surgical History / Comment(s): Section X1. Past Anesthesia/Blood Transfusion Reactions: Motion Sickness, Postoperative Nausea & Vomiting (PONV) Past Psychological History: Anxiety, Depression Smoking Status: Never smoker Past Alcohol Use History: None Reported Past Drug Use History: None Reported - Past Family History Father Family Medical History: No Reported History Medications and Allergies Home Medications Medication Instructions Recorded Confirmed Type Cetirizine HCl [Zyrtec] 10 mg PO DAILY PRN 08/15/18 01/01/21 History Cholecalciferol [Vitamin D3] 1,000 units PO HS 08/15/18 01/01/21 History Levothyroxine Sodium [Synthroid] 50 mcg PO MOTUTHFRSA 08/15/18 01/01/21 History [place]-3 Fatty Acids [[place]-3] 1 tab PO HS 08/15/18 01/01/21 History Pnv,Calcium 72/Iron/Folic Acid 1 each PO DAILY 08/15/18 01/01/21 History [ Plus Tablet] Aspirin 81 mg PO DAILY 10/20/20 01/01/21 History Escitalopram [Lexapro] 10 mg PO DAILY 10/20/20 01/01/21 History Labetalol [Trandate] 200 mg PO BID 12/30/20 01/01/21 History Levothyroxine Sodium [Synthroid] 100 mcg PO SUWE 12/31/20 01/01/21 History Allergies Allergy/AdvReac Type Severity Reaction Status Date / Time Sulfa (Sulfonamide Allergy Rash/Hives Verified 12/31/20 14:41 Antibiotics) Exam Osteopathic Statement: *. No significant issues noted on an osteopathic structural exam other than those noted in the History and Physical/Consult. Heart: Regular rate and rhythm Lungs: Clear to auscultation bilaterally Abdomen: Soft, nontender Extremities: Negative Homans sign Assessment and Plan (1) Gestational hypertension Status: Acute Code(s): O13.9 - GESTATIONAL HTN W/O SIGNIFICANT PROTEINURIA, UNSP TRIMESTER SNOMED Code(s): 83366948 (2) Bicornuate uterus Status: Acute Code(s): Q51.3 - BICORNATE UTERUS SNOMED Code(s): 90980706 (3) Previous section Status: Acute Code(s): Z98.891 - HISTORY OF UTERINE SCAR FROM PREVIOUS SURGERY SNOMED Code(s): 921277446 Plan: 1. Repeat low transverse
[2021-01-07] MEDS ORDERED: CITRIC ACID-SODIUM CITRATE 15 ML CUP PO ONE (10:32)
[2021-01-07] MEDS ORDERED: ceFAZolin 3 GM in SODIUM CHLORIDE 0.9% 100 ML IVPB ONE (10:32)
[2021-01-07 10:57] LABS: Basophils % (A) 0 %; Eosinophils # (A) 0.2 k/uL (0-0.7); Eosinophils % (A) 1 %; HCT 37.2 % (34.0-46.0); HGB 12.7 gm/dL (11.4-16.0); Lymphocytes # (A) 1.8 k/uL (1.0-4.8); Lymphocytes % (A) 14 %; MCH 29.9 pg (25.0-35.0); MCHC 34.1 g/dL (31.0-37.0); MCV 87.8 fL (80.0-100.0); Mean Platelet Volume 8.2; Monocytes # (A) 0.5 k/uL (0-1.0); Monocytes % (A) 4 %; Neutrophils # (A) 10.3 k/uL (1.3-7.7); Neutrophils % (A) 80 %; Platelet Count 230 k/uL (150-450); RBC 4.23 m/uL (3.80-5.40); RDW 12.9 % (11.5-15.5); WBC 12.8 k/uL (3.8-10.6)
[2021-01-07 11:07] LABS: ALT 13 U/L (4-34); AST 17 U/L (14-36); African American GFR (CKD) >90 (>60 ml/min/1.73 sqM); Blood Urea Nitrogen 6 mg/dL (7-17); LDH 517 U/L (313-618); Non-African American GFR(CKD) >90 (>60 ml/min/1.73 sqM)
[2021-01-07 11:17] LABS: INR 0.9 (<1.2); Partial Thromboplastin Time 23.4 sec (22.0-30.0); Prothrombin Time 9.8 sec (9.0-12.0)
[2021-01-07] MEDS ORDERED: LACTATED RINGERS 1,000 ML IV ONE (11:30)
[2021-01-07 11:50] LABS: Appearance,Urine Clear (Clear); Bilirubin,Urine Negative (Negative); Blood,Urine Negative (Negative); Color,Urine Yellow; Glucose,Urine (UA) Negative (Negative); Ketones,Urine 2+ (Negative); Leukocyte Esterase,Urine Negative (Negative); Nitrite,Urine Negative (Negative); PH, Urine 6.5 (5.0-8.0); Protein,Urine Trace (Negative); Specific Gravity,Urine 1.022 (1.001-1.035); Urobilinogen,Urine <2.0 mg/dL (<2.0)
[2021-01-07 11:54] LABS: Creatinine,Urine Random 154.1 mg/dL
[2021-01-07] MEDS ORDERED: ePHEDrine SULFATE/0.9% NACL/PF 50 MG/5 ML SYRINGE IV ONE (12:21)
[2021-01-07] MEDS ORDERED: MORPHINE SULFATE (PF) 0.3 MG/0.3 ML SYR ONE (12:21)
[2021-01-07] MEDS ORDERED: OXYTOCIN 30 UNITS/500 ML NS BAG IV ONE (12:21)
[2021-01-07] MEDS ORDERED: PHENYLEPHRINE-0.9% NACL SYG 1,000 MCG/10 ML SYRINGE ONE (12:21)
[2021-01-07] MEDS ORDERED: KETOROLAC 15 MG/ML 1 ML VIAL ONE (12:21)
[2021-01-07] MEDS ORDERED: ZOLPIDEM 5 MG TAB PO PRN (13:03)
[2021-01-07] MEDS ORDERED: METOCLOPRAMIDE 5 MG/ML 2 ML VIAL IVP PRN (13:03)
[2021-01-07] MEDS ORDERED: diphenhydrAMINE 25 MG CAP PO PRN (13:03)
[2021-01-07] MEDS ORDERED: diphenhydrAMINE 50 MG/ML 1 ML VIAL IVP PRN ×2 (13:03)
[2021-01-07] MEDS ORDERED: LANOLIN CREAM 5 GM TUBE TOPICAL PRN (13:03)
[2021-01-07] MEDS ORDERED: diphenhydrAMINE 50 MG CAP PO PRN (13:03)
[2021-01-07] MEDS ORDERED: ONDANSETRON 4 MG/2 ML VIAL IVP PRN (13:03)
[2021-01-07] MEDS ORDERED: NALOXONE 0.4 MG/ML 1 ML VIAL IV PRN (13:03)
[2021-01-07] MEDS ORDERED: LORATADINE 10 MG TAB PO PRN (13:04)
--- NOTE | 2021-01-07 13:07 | P.OP ---
Date of Procedure: 01/07/21 Preoperative Diagnosis: 1. at 36 weeks 5 days 2. previous 3. Gestational hypertension 4. umbilical cord varix Postoperative Diagnosis: 1. at 36 weeks 5 days 2. previous 3. Gestational hypertension 4. umbilical cord varix Procedure(s) Performed: Repeat low transverse Anesthesia: spinal Surgeon: Ramandeep Shell Laborer Syrup Machine #1: Zach Hoang Estimated Blood Loss (ml): 350 IV fluids (ml): 500 Urine output (ml): 100 Pathology: other (Placenta) Condition: stable Disposition: floor Operative Findings: Viable female, Apgars 8, 9, weight 7 lbs. 4 oz. Description of Procedure: Patient was taken to the operating room where spinal anesthesia was found be adequate. She was prepped and draped in normal sterile fashion in dorsal supine position with a leftward tilt. Pfannenstiel skin incision was made the scalpel and carried through to the underlying layer of fascia with the scalpel. Fascia was incised in midline and carried bilaterally with the Gleason scissors. The superior aspect of the fascial incision was grasped with Dhiraj clamps elevated and the underlying rectus muscles dissected off with the Gleason's. Attention was then turned to inferior aspect of same incision which in a similar fashion was grasped tented up and the underlying rectus muscles dissected off with the Gleason's. The rectus muscles were the midline and the peritoneum was identified tented up and entered sharply with the scalpel. The incision was extended superiorly and inferiorly with good visualization of the bladder. The bladder blade was inserted and the vesicouterine peritoneum was incised the Metzenbaums then carried bilaterally and bladder flap created digitally. A low transverse incision was then made on the uterus with the scalpel. This was carried bilaterally and digital manner. 's head delivered atraumatically, nose and mouth bulb suctioned, cord clamped and cut, handed off to waiting nurses. Apgars 8,9, weight 7 lbs. 4 oz. Placenta delivered manually, intact with three-vessel cord. The uterus is exteriorized and cleared of all clots and debris. The uterine incision was closed with 0 Vicryl in a running locked fashion. Second layer of the same sutures used in imbricating fashion to obtain excellent hemostasis. Both ovaries and tubes appeared normal. The uterus was placed back into the abdomen. The peritoneum was reapproximated using 2-0 Vicryl in a running fashion. The fascia was reapproximated using 0 Vicryl in a running fashion. The subcutaneous tissues closed with 3-0 Vicryl running fashion. The skin was closed major. Patient tolerated the procedure well, sponge and instrument counts were correct times 2 and she was taken to the recovery room in stable condition.
[2021-01-07] MEDS ORDERED: OXYTOCIN 30 UNITS/500 ML NS 30 UNIT in SALINE 1 500ML.BAG IV SCH (13:15)
[2021-01-07] MEDS: ACETAMINOPHEN TAB 500 MG TAB PO SCH (17:16)
[2021-01-07] MEDS: KETOROLAC 15 MG/ML 1 ML VIAL IVP SCH ×2 (17:59→23:32)
[2021-01-07] MEDS: LACTATED RINGERS 1,000 ML IV SCH (18:01)
[2021-01-07] MEDS: SENNOSIDES-DOCUSATE SODIUM 1 EACH TAB PO SCH (20:26)
[2021-01-08] MEDS: IBUPROFEN 600 MG TAB PO SCH ×6 (02:18→23:31)
[2021-01-08] MEDS: LABETALOL 200 MG TAB PO SCH ×3 (02:19→21:02)
[2021-01-08] MEDS: LACTATED RINGERS 1,000 ML IV SCH ×2 (02:20→14:55)
[2021-01-08] MEDS: ACETAMINOPHEN TAB 500 MG TAB PO SCH ×5 (04:02→22:27)
[2021-01-08] MEDS: KETOROLAC 15 MG/ML 1 ML VIAL IVP SCH (06:07)
[2021-01-08 06:26] LABS: Basophils % (A) 0 %; Eosinophils # (A) 0.1 k/uL (0-0.7); Eosinophils % (A) 1 %; HCT 35.8 % (34.0-46.0); HGB 11.8 gm/dL (11.4-16.0); Lymphocytes # (A) 1.8 k/uL (1.0-4.8); Lymphocytes % (A) 17 %; MCH 29.8 pg (25.0-35.0); MCV 90.2 fL (80.0-100.0); Mean Platelet Volume 7.9; Monocytes # (A) 0.4 k/uL (0-1.0); Monocytes % (A) 4 %; Neutrophils # (A) 8.1 k/uL (1.3-7.7); Neutrophils % (A) 77 %; Platelet Count 203 k/uL (150-450); RBC 3.97 m/uL (3.80-5.40); RDW 12.8 % (11.5-15.5); WBC 10.6 k/uL (3.8-10.6)
[2021-01-08] MEDS: LEVOTHYROXINE 50 MCG TAB PO SCH (06:29)
[2021-01-08] MEDS: SENNOSIDES-DOCUSATE SODIUM 1 EACH TAB PO SCH ×2 (08:38→20:54)
[2021-01-08] MEDS: SIMETHICONE 80 MG CHEWABLE PO SCH ×4 (08:38→18:40)
[2021-01-08] MEDS: ESCITALOPRAM 10 MG TAB PO SCH (10:18)
--- NOTE | 2021-01-08 11:59 | P.PNOBGPC ---
Subjective - Subjective Principal diagnosis: Status post repeat low transverse postop day #1 Interval history: Patient seen and examined. Tolerating regular diet and passing flatus. Pain is well-controlled. Denies nausea, vomiting, chest pain, shortness of breath or calf pain. Patient reports: Reports appetite normal, Reports voiding normally, Reports pain well controlled, Reports ambulating normally [place]: doing well Objective - Vital Signs Latest vital signs: Vital Signs Temp Pulse Resp BP Pulse Ox 01/08/21 08:00 98.1 F 76 16 136/74 98 01/08/21 04:00 96.0 F L 71 18 101/65 01/08/21 00:00 96.0 F L 80 16 120/79 01/07/21 20:00 96.0 F L 78 16 98/65 01/07/21 15:07 98.1 F 85 17 112/52 96 01/07/21 14:37 88 17 112/58 97 01/07/21 14:07 97.1 F L 89 17 107/55 96 01/07/21 13:52 90 17 98/57 96 01/07/21 13:37 90 17 94/53 97 01/07/21 13:22 94 18 108/55 97 01/07/21 13:07 97.1 F L 86 18 102/51 96 Intake and Output 01/07/21 01/08/21 01/08/21 22:59 06:59 14:59 Intake Total 500 Output Total 400 500 200 Balance 100 -500 -200 Intake: IV 500 Output: Urine 400 500 200 Uretheral (Parrish) 100 Other: Voiding Method Indwelling Catheter # Voids 1 - Exam Lungs: bilateral: normal Chest: Normal S1, Normal S2 Extremities: Present: normal Abdomen: Present: normal appearance, soft. Absent: distention, tenderness Incision: Present: normal, dry, intact Uterus: Present: normal, firm - Labs Labs: Abnormal Lab Results - Last 24 Hours (Table) 01/08/21 Range/Units 05:56 Neutrophils # 8.1 H (1.3-7.7) k/uL Assessment and Plan (1) Gestational hypertension Current Visit: No Status: Acute Code(s): O13.9 - GESTATIONAL HTN W/O SIGNIFICANT PROTEINURIA, UNSP TRIMESTER SNOMED Code(s): 32527508 (2) Bicornuate uterus Current Visit: No Status: Chronic Code(s): Q51.3 - BICORNATE UTERUS SNOMED Code(s): 29248405 (3) Previous section Current Visit: No Status: Resolved Code(s): Z98.891 - HISTORY OF UTERINE SCAR FROM PREVIOUS SURGERY SNOMED Code(s): 341575603 (4) Status post repeat low transverse section Current Visit: Yes Status: Acute Code(s): Z98.891 - HISTORY OF UTERINE SCAR FROM PREVIOUS SURGERY SNOMED Code(s): 762425803 Plan: 1. Labetalol was held last night due to low blood pressures, if her blood pressure started to creep up past 140/90 will continue clobetasol 2. Increase ambulation 3. Pain control
[2021-01-08] MEDS: BACITRACIN OINT 1 EACH PACKET TOPICAL SCH ×2 (13:39→20:54)
--- NOTE | 2021-01-08 20:27 | P.PN ---
Progress Note - Text 01/08/211956hrs 30-year-old female status post with spinal Duramorph. Patient seen and evaluated for postop pain control with a VAS of 4. Patient did have complains of nausea vomiting and pruritus and both have subsided. Doing well
[2021-01-08 23:53] VITALS: RESP 14
[2021-01-09] MEDS: SIMETHICONE 80 MG CHEWABLE PO SCH ×3 (00:49→13:44)
[2021-01-09] MEDS: ACETAMINOPHEN TAB 500 MG TAB PO SCH ×2 (05:00→10:48)
[2021-01-09] MEDS ORDERED: LEVOTHYROXINE 100 MCG TAB PO SCH (06:30)
[2021-01-09] MEDS: IBUPROFEN 600 MG TAB PO SCH ×2 (06:40→13:44)
[2021-01-09] MEDS: LEVOTHYROXINE 50 MCG TAB PO SCH (06:47)
[2021-01-09 08:55] VITALS: BP 124/71; PULSE 80; TEMP 98.8
[2021-01-09] MEDS: SENNOSIDES-DOCUSATE SODIUM 1 EACH TAB PO SCH (09:00)
[2021-01-09] MEDS: BACITRACIN OINT 1 EACH PACKET TOPICAL SCH (09:01)
[2021-01-09] MEDS: LABETALOL 200 MG TAB PO SCH (09:02)
[2021-01-09] MEDS: ESCITALOPRAM 10 MG TAB PO SCH (09:03)
--- NOTE | 2021-01-09 11:02 | P.DS ---
Providers Date of admission: 01/07/21 09:49 Expected date of discharge: 01/09/21 Attending physician: Ramandeep Shell Primary care physician: Stated None - Discharge Diagnosis(es) (1) Gestational hypertension Current Visit: No Status: Acute (2) Bicornuate uterus Current Visit: No Status: Chronic (3) Status post repeat low transverse section Current Visit: Yes Status: Acute Hospital Course: She presented for repeat low transverse . She underwent this procedure without complication. Postoperatively she feels well, tolerating regular diet, passing flatus and ambulating and voiding without difficulty. She denies nausea, vomiting, chest pain, shortness of breath or any calf pain. Her incision is clean, dry, intact with major. She will be discharged home postoperative day #2 in stable condition to follow-up with me in one week. Plan - Discharge Summary Discharge Rx Participant: No New Discharge Prescriptions: New Ibuprofen [Motrin] 600 mg PO Q6H #30 tab oxyCODONE HCL [OxyIR] 5 mg PO Q6HR PRN #12 tab PRN Reason: Pain No Action Levothyroxine Sodium [Synthroid] 50 mcg PO MOTUTHFRSA Cetirizine HCl [Zyrtec] 10 mg PO DAILY PRN PRN Reason: Allergy Symptoms Pnv,Calcium 72/Iron/Folic Acid [ Plus Tablet] 1 each PO DAILY Cholecalciferol [Vitamin D3] 1,000 units PO HS [place]-3 Fatty Acids [[place]-3] 1 tab PO HS Aspirin 81 mg PO DAILY Levothyroxine Sodium [Synthroid] 100 mcg PO SUWE Escitalopram [Lexapro] 10 mg PO DAILY Labetalol [Trandate] 200 mg PO BID Discharge Medication List Cetirizine HCl [Zyrtec] 10 mg PO DAILY PRN 08/15/18 [History] Cholecalciferol [Vitamin D3] 1,000 units PO HS 08/15/18 [History] Levothyroxine Sodium [Synthroid] 50 mcg PO MOTUTHFRSA 08/15/18 [History] [place]-3 Fatty Acids [[place]-3] 1 tab PO HS 08/15/18 [History] Pnv,Calcium 72/Iron/Folic Acid [ Plus Tablet] 1 each PO DAILY 08/15/18 [History] Aspirin 81 mg PO DAILY 10/20/20 [History] Escitalopram [Lexapro] 10 mg PO DAILY 10/20/20 [History] Labetalol [Trandate] 200 mg PO BID 12/30/20 [History] Levothyroxine Sodium [Synthroid] 100 mcg PO SUWE 12/31/20 [History] Ibuprofen [Motrin] 600 mg PO Q6H #30 tab 01/09/21 [Rx] oxyCODONE HCL [OxyIR] 5 mg PO Q6HR PRN #12 tab 01/09/21 [Rx] Follow up Appointment(s)/Referral(s): Ramandeep Shell DO [Doctor of Osteopathic Medicine] - 02/18/21 11:15 am (Post OP 01-18-2021 @ 01:30p.m.) Discharge Disposition: HOME SELF-CARE
== END 2021-01-09 14:25 | disposition home or self-care (01) | DRG 788 ==
LOC: 4FBP 09:49
PROVIDERS: ADMIT Obstetrics & Gynecology; ATTEND Obstetrics & Gynecology
PROC: 10D00Z1 Extraction of Products of Conception, Low, Open Approach (ICD-10-PCS; principal; 2021-01-07 12:00)
DX: O13.4 Gestational [pregnancy-induced] hypertension without significant proteinuria, complicating childbirth (principal); O34.03 Maternal care for unspecified congenital malformation of uterus, third trimester; O34.211 Maternal care for low transverse scar from previous cesarean delivery; O99.344 Other mental disorders complicating childbirth; O12.14 Gestational proteinuria, complicating childbirth; Q51.3 Bicornate uterus; F41.9 Anxiety disorder, unspecified; F32.9 Major depressive disorder, single episode, unspecified; L29.9 Pruritus, unspecified; O99.72 Diseases of the skin and subcutaneous tissue complicating childbirth; Z37.0 Single live birth; Z3A.36 36 weeks gestation of pregnancy; O69.5XX0 Labor and delivery complicated by vascular lesion of cord, not applicable or unspecified; Z79.82 Long term (current) use of aspirin; Z79.890 Hormone replacement therapy; Z79.899 Other long term (current) drug therapy
CPT/HCPCS: 81003; 82565; 82570; 83615; 84156; 84450; 84460; 84520; 85025; 85610; 85730; 86850; 86900; 86901; 88307